=== PATIENT | female | born 1985 | race Caucasian/White ===

== ENCOUNTER 2018-04-29 18:28 | Outpatient (REF) | payer MEDICAID, SELFPAY ==
--- NOTE | 2018-04-29 13:30 | PAPFT_PTH ---
PATIENT: BHAVANA ROMERO LOC: [facility] U#:[id number] AGE/SX: 33/F ROOM: RE04/29/[address]: Roly Adams : 1985 BED: DIS: 04/29/2018 SPEC #: [id number] RECD: 04/29/18 18:36 STATUS: MICHELLE RENahomy #: [id number] ALLIE: 04/29/18 13:[address]: Roly Adams [facility]PT[facility] Cytology RECD BY: Veronica Shane Tissues: 1 - CX/ENDOCX FOR PAP SMEARS Procedures: PAP THIN PREP/[facility] Screening HPV DNA PROBE Comments: [id number]
[2018-05-02 14:05] LABS: Chlamydia Result Negative; GC Result Negative
== END 2018-04-29 18:48 ==
LOC: NCHCN 18:28
PROVIDERS: PCP Physician Assistant Medical; Visit Provider Physician Assistant Medical
DX: Z11.3 Encounter for screening for infections with a predominantly sexual mode of transmission (principal); Z12.4 Encounter for screening for malignant neoplasm of cervix
CPT/HCPCS: 87491; 87591; 88142; 87624